=== PATIENT | male | born 1970 | race Caucasian/White ===

== ENCOUNTER 2017-03-03 17:57 | Emergency (ER) | payer BC ==
[~2017-03-03] VITALS: Ht 165.1 cm; Wt 84.2 kg
[2017-03-03 18:09] VITALS: Ht 165.1 cm; Wt 84.2 kg
[2017-03-03] MEDS ORDERED: DOXY100T20 PO (19:20)
--- NOTE | 2017-03-03 19:20 | ERD ---
ER Documentation Chief Complaint Date/Time DATE: 03/03/17 TIME: 19:06 Chief Complaint RIGHT INDEX FINGER SWELLING,PAIN HPI This pleasant 47-year-old male patient presents with right hand index finger pain. Patient has purulent bulla around the nailbed and at fingertip. 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 He denies biting his nails but sometimes has dried cuticles that tear. Patient denies any nausea vomiting fever or chills. His has full sensation fingertips. She has tried no [id number] medication for symptomatic relief. He denies any antibiotic use in the last 3 months. He denies any known injury. ROS All systems reviewed and are negative except as per history of present illness. Medications Home Meds Active Scripts Mupirocin* (Bactroban*) 2% -22 Gram Oint...g., 1 APPLIC TOP BID for 7 Days, EA Prov:PERICO,LINDSEY 03/03/17 Doxycycline Hyclate* (Doxycycline Hyclate*) 100 Mg Tablet.dr, 100 MG PO BID for 10 Days, TAB Prov:PERICO,LINDSEY 03/03/17 Physical Exam Vitals Vital Signs Date Time Temp Pulse Resp B/P Pulse Ox O2 Delivery O2 Flow Rate FiO2 03/03/17 18:09 98.8 93 18 123/83 98 Vitals stable, triage notes reviewed Physical Exam Const: No acute distress Head: Atraumatic Eyes: Normal Conjunctiva PERRLA, EOMI ENT: Neck: . Resp: Cardio: Abd: Skin: Right hand index finger presents with inflammation and purulent bulla around the nailbed. Back: Ext: Lower Extremity -right hand index finger Skin: Inflammation and purulent bulla around the nailbed right hand index finger Compartments: Soft Motor: Full active range of motion hip/knee/ankle/foot Sensation: Intact to light touch anterior posterior and lateral surfaces. Bones: Nontender at DIP, MIP, PIP. Right hand index finger Joints: No effusion or laxity Pulses/Perfusion: 2+ DP, Capillary refill < 2 seconds Neur: Awake and alert Psych: Normal Mood and Affect Results 24 hrs Current Medications Medications (Trade) Dose Ordered Sig/Shahab Route PRN Reason Start Time Stop Time Status Last Admin Dose Admin Acetaminophen (Tylenol Tab) 650 mg ONCE ONCE PO 03/03/17 19:30 03/03/17 19:31 DC 03/03/17 19:10 Procedures/MDM This pleasant 47-year-old male patient presents to the emergency department today with a right index finger Parriott she had. Patient has prominent bulla around the nailbed, there is no nailbed avulsion. Good capillary refill and sensation. Bone injury or infection is not suspected, no suspicion for osteomyelitis or fracture. Patient will be treated with a Betadine soap, needle aspiration, drainage of purulent matter, and start on doxycycline Departure Diagnosis: Primary Impression: Perionychia of finger Laterality: right Qualified Code: L03.011 - Perionychia of finger, right Patient Instructions: Paronychia Additional Instructions: Thank you for for coming to [facility] for your care today. Please ask your nurse or provider if you have questions about your care today and do not leave until all your questions have been answered. Please use any medications given as directed and follow-up with your doctor (or the doctor you were referred to) in the next 2-3 days. If you do not have a primary care doctor you may follow up at the [facility] (listed below). You may also use motrin and tylenol as needed for fever and/or pain unless instructed otherwise by your provider or nurse. Indications for more urgent follow-up have been discussed, but you may return to the Emergency Department at ANY time for any worrisome or worsening symptoms. If you have abdominal pain, please know that no test or exam you received is perfect and you should follow up within 8 hours for continued pain. If you had any imaging studies today, such as an X-Ray or CT Scan, these studies will be reviewed later by a radiologist. You will be called if there are important findings that were not identified today, so make sure the contact information you provided at registration is correct. If you received any narcotic pain control medicine today, such as Vicodin, Morphine or Dilaudid, your coordination and judgment may be affected for a number of hours. Please do not drive or operate heavy machinery, and you may want someone to assist you at home. If you were given a prescription for narcotic medication, be aware that it is very addictive- use sparingly and only if necessary. LINDSEY RIVER Mar 03, 2017 19:18
[2017-03-03] MEDS ORDERED: MUPI22OI2 TOP (19:21)
[2017-03-03] MEDS ORDERED: ACETAMINOPHEN 325 MG TAB PO ONE (19:30)
== END 2017-03-03 20:22 | disposition home or self-care (01) ==
LOC: FTE 17:57
DX: L03.011 Cellulitis of right finger (principal)
CPT/HCPCS: 99284